=== PATIENT | male | born 1970 | race Caucasian/White ===

== ENCOUNTER 2018-06-23 08:36 | Day surgery (SDC) | payer MEDICARE, SELFPAY ==
[2018-06-22 13:08] VITALS: BP 124/87; PULSE 60; RESP 16; TEMP 36.9; O2SAT 97; BMI 32.1
[2018-06-23] VITALS (7 sets, daily range): BP systolic 104–132; BP diastolic 70–79; PULSE 59–79; RESP 16–18; TEMP 36.2–37.4; O2SAT 99–100; BMI 32.1
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
--- NOTE | 2018-06-23 09:45 | COLBX_PTH ---
PATIENT: CHRISTIANNE BERRY LOC: EN U#:[id number] AGE/SX: 48/M ROOM: RE06/23/[address]: Dr. Gia Huff MD : 1970 BED: DIS: 06/23/2018 SPEC #: [id number] RECD: 06/23/18 10:41 STATUS: MARA RELelia #: [id number] MEEK: 06/23/18 09:[address]: Gia Huff DEPT: SURGICAL PATHOLOGY RECD BY: Cliff Collins ENTERED: 06/23/18 11:24 SP TYPE: COLON BX OT DR: Dr. Little Faulkner DO Tissues: A - Transverse colon B - Descending colon C - Descending colon D - Rectum, NOS Procedures: Surgery Specimen Level IV HEADER OPERATION: Colonoscopy (MAC) PRE-OP DIAGNOSIS: Screening TISSUE SUBMITTED: A - Transverse colon biopsy, B - Proximal descending colon polyp biopsy, C - Distal descending colon polyp biopsy, D - Rectal polyps biopsy MICROSCOPIC DIAGNOSIS A. Polyp transverse colon, biopsy: Fragments of tubular adenoma. B. Proximal descending colon, biopsy: Fragments of colonic mucosa, no pathologic diagnosis. C. Polyp distal descending colon, biopsy: Tubular adenoma. D. Polyp rectum, biopsy: Fragments of hyperplastic polyp. VARUN:arlyn 06/24/18 MICROSCOPIC DESCRIPTION Slides are reviewed. GROSS DESCRIPTION A - Received in fixative is one container labeled with the patient's name and designated biopsy polyp transverse colon. The specimen consists of multiple irregular fragments of light huff soft tissue that in aggregate measure 0.6 x 0.2 x 0.1 cm. The specimen is totally submitted in one cassette. B - Received in fixative is one container labeled with the patient's name and designated biopsy polyp proximal descending colon. The specimen consists of two irregular fragments of light huff soft tissue that in aggregate measure 0.8 x 0.2 x 0.1 cm. The specimen is totally submitted in one cassette. C - Received in fixative is one container labeled with the patient's name and designated biopsy polyp distal descending colon. The specimen consists of one irregular fragment of light huff soft tissue that measures 0.3 x 0.3 x 0.1 cm. The specimen is totally submitted in one cassette. D - Received in fixative is one container labeled with the patient's name and designated biopsy polyp rectum. The specimen consists of multiple irregular fragments of light huff soft tissue that in aggregate measure 0.8 x 0.4 x 0.1 cm. The specimen is totally submitted in one cassette. / SJ:arlyn 06/23/18 TC:1 CPT: 02410 x4
--- NOTE | 2018-06-23 10:28 | OP.ENDO_ITS ---
Patient Name: Sameer Stapleton Procedure Date: 06/23/2018 9:23 AM Date of : 1970 Age: 48 Procedure: Colonoscopy Indications: Screening for colorectal malignant neoplasm Providers: Gia Huff MD Referring MD: Little Faulkner Medicines: Monitored Anesthesia Care Patient Profile: This is a 48 year old male. Last Colonoscopy: none. The patient's first colonoscopy is today. Complications: No immediate complications. Procedure: Pre-Anesthesia Assessment: - Prior to the procedure, a History and Physical was performed, and patient medications and allergies were reviewed. The patient's tolerance of previous anesthesia was also reviewed. The risks and benefits of the procedure and the sedation options and risks were discussed with the patient. All questions were answered, and informed consent was obtained. Prior Anticoagulants: The patient has taken no previous anticoagulant or antiplatelet agents. ASA Grade Assessment: II - A patient with mild systemic disease. After reviewing the risks and benefits, the patient was deemed in satisfactory condition to undergo the procedure. After I obtained informed consent, the scope was passed under direct vision. Throughout the procedure, the patient's blood pressure, pulse, and oxygen saturations were monitored continuously. The pediatric colonoscope was introduced through the anus and advanced to the ascending colon. The colonoscopy was technically difficult and complex due to a tortuous colon and Anterior abdominal loss of domain due to multiple previous surgery after 1996 with significant looping of the scope. The procedure was aided by changing the patient to a supine position and using manual pressure. The patient tolerated the procedure well. The quality of the bowel preparation was good. Scope In: 9:43:39 AM Scope Withdrawal Time 0 hours 14 minutes 34 seconds Scope Out: 10:18:36 AM Total Procedure Duration Time 0 hours 34 minutes 57 seconds Findings: The perianal and digital rectal examinations were normal. Five sessile polyps were found in the rectum, proximal descending colon, distal descending colon and transverse colon. The polyps were less than 5 mm in size. These polyps were removed with a cold biopsy forceps. Resection and retrieval were complete. The exam was otherwise without abnormality on direct and retroflexion views. Impression: - Five less than 5 mm polyps in the rectum, in the proximal descending colon, in the distal descending colon and in the transverse colon, removed with a cold biopsy forceps. Resected and retrieved. - The examination was otherwise normal on direct and retroflexion views. Recommendation: - Discharge patient to home. - Await pathology results. - Perform a single contrast barium enema in 1 week due to incomplete colonoscopy - Repeat colonoscopy is recommended based on pathology and BE results. The colonoscopy date will be determined after pathology results from today's exam become available for review. - Continue present medications. Procedure Code(s): --- Professional --- 41100, 52, Colonoscopy, flexible; with biopsy, single or multiple Diagnosis Code(s): --- Professional --- Z12.11, Encounter for screening for malignant neoplasm of colon K62.1, Rectal polyp D12.4, Benign neoplasm of descending colon D12.3, Benign neoplasm of transverse colon (hepatic flexure or splenic flexure) CPT copyright 2017 [employer]. All rights reserved. The codes documented in this report are preliminary and upon water technician review may be revised to meet current compliance requirements. MD Gia Cheung MD 06/23/2018 10:27:49 AM This report has been signed electronically. Number of Addenda: 0 Note Initiated On: 06/23/2018 9:23 AM
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
--- OUTSIDE RECORDS SUMMARY | 2018-08-09 04:13 | XMS RPT_ITS | Continuity of Care Document ---
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 Avg.Risk 6.2 5.0 3X Avg.Risk 8.0 6.1 LDL Cholesterol Calc 98 mg/dL (Normal) Range: 0-99 VLDL Cholesterol Lobo 40 mg/dL (Normal) Range: 5-40 HDL Cholesterol 40 mg/dL (Normal) Triglycerides 202 mg/dL (Abnormal) Range: 0-149 Cholesterol, Total 178 mg/dL (Normal) Range: 100-199 :10 Microalb/Creat Ratio, Randm Ur Comments: PATIENT WAS FASTINGPERFORMED BY: Mindmancer [employer] [facility] [id number] Microalb/Creat Ratio MALD {mg/g_creat} Range: 0.0-30.0 (Abnormal) Comments: This result is below the assay's limit of quantitation indicating adilute specimen, potentially due to diurnal variation. Considerrecollection at a time likely to provide a more concentrated urine. Microalbumin, Urine <3.0 ug/mL (Normal) Creatinine, Urine 122.2 mg/dL (Normal) 1-Xws-176841:10 Microscopic Examination Comments: PATIENT WAS FASTINGPERFORMED BY: Payoneer [employer] [facility] [id number] Bacteria None seen (Normal) Mucus Threads Present (Normal) Epithelial Cells (non None seen {/hpf} Range: 0 - 10 renal) (Normal) RBC None seen {/hpf} Range: 0 - 2 (Normal) WBC None seen {/hpf} Range: 0 - 5 (Normal) TSH 2.040 {uIU/mL} Comments: PATIENT WAS FASTINGPERFORMED BY: Payoneer Ljncxh9573 [facility] [id number] :10 (Normal) Range: 0.450-4.500 :10 Urinalysis, Complete Comments: PATIENT WAS FASTINGPERFORMED BY: Mindmancer Narrku0244 [facility] [id number] Microscopic Examination See below: (Normal) Comments: Microscopic was indicated and was performed. Microscopic Examination MICRON (Normal) Comments: Microscopic follows if indicated. Nitrite, Urine Negative (Normal) Urobilinogen,Semi-Qn 0.2 mg/dL (Normal) Range: 0.2-1.0 Bilirubin Negative (Normal) Occult Blood Negative (Normal) Ketones Negative (Normal) Glucose Negative (Normal) Protein Negative (Normal) WBC Esterase Negative (Normal) Appearance Clear (Normal) Urine-Color Yellow (Normal) pH 6.0 (Normal) Range: 5.0-7.5 Specific [place] 1.022 (Normal) Range: 1.005-1.030 :09 HgA1C , Office (89741) HgA1C , Office 5.6 % (Normal) Range: 4.6 - 7.1 :09 Blood Glucose , Office (51085) Blood Glucose , Office 91 (Normal) :58 Microscopic Examination Comments: PATIENT WAS FASTINGPERFORMED BY: DoPay63YouEarnedItUNC Health [facility] [id number] Bacteria Few (Normal) Mucus Threads Present (Normal) Epithelial Cells (non renal) None seen {/hpf} (Normal) Range: 0 - 10 RBC 0-2 {/hpf} (Normal) Range: 0 - 2 WBC 6-10 {/hpf} (Abnormal) Range: 0 - 5 :58 PSA (PROSTATE SPECIFIC Comments: PATIENT WAS FASTINGPERFORMED BY: SeeControl70 CucinialeUNC Health [facility] [id number] ANTIGEN) (V76.44) Prostate Specific Ag, 1.2 ng/mL (Normal) Range: 0.0-4.0 Serum Comments: TowiIA methodology. .According to the [place] [employer], Serum PSA shoulddecrease and remain at undetectable levels after radicalprostatectomy. The AUA defines biochemical recurrence as an initialPSA value 0.2 ng/mL or greater followed by a subsequent confirmatoryPSA value 0.2 ng/mL or greater.Values obtained with d ifferent assay methods or kits cannot be usedinterchangeably. Results cannot be interpreted as absolute evidenceof the presence or absence of malignant disease. :58 LIPID PANEL (12025) Comments: PATIENT WAS FASTINGPERFORMED BY: DoPay63YouEarnedItUNC Health [facility] [id number] LDL/HDL Ratio 2.5 {ratio_units} (Normal) Range: 0.0-3.6 Comments: LDL/HDL Ratio Men Women 1/2 Avg.Risk 1.0 1.5 Av g.Risk 3.6 3.2 2X Avg.Risk 6.2 5.0 3X Avg.Risk 8.0 6.1 LDL Cholesterol Calc 112 mg/dL (Abnormal) Range: 0-99 VLDL Cholesterol Lobo 29 mg/dL (Normal) Range: 5-40 HDL Cholesterol 44 mg/dL (Normal) Triglycerides 147 mg/dL (Normal) Range: 0-149 Cholesterol, Total 185 mg/dL (Normal) Range: 100-199 :58 TSH (83086) Comments: PATIENT WAS FASTINGPERFORMED BY: NetzoptikerUNC Health [facility] [id number] TSH 2.080 {uIU/mL} (Normal) Range: 0.450-4.500 :58 URINALYSIS, W/ MICRO (76012) Comments: PATIENT WAS FASTINGPERFORMED BY: NetzoptikerUNC Health [facility] [id number] Microscopic Examination See below: (Normal) Comments: Microscopic was indicated and was performed. Nitrite, Urine Negative (Normal) Urobilinogen,Semi-Qn 0.2 mg/dL (Normal) Range: 0.2-1.0 Bilirubin Negative (Normal) Occult Blood Negative (Normal) Ketones Negative (Normal) Glucose Negative (Normal) Protein Negative (Normal) WBC Esterase 2+ (Abnormal) Appearance Clear (Normal) Urine-Color Yellow (Normal) pH 5.5 (Normal) Range: 5.0-7.5 Specific [place] 1.021 (Normal) Range: 1.005-1.030 :58 MICROALBUMIN: CREATININE RATIO Comments: PATIENT WAS FASTINGPERFORMED BY: NetzoptikerUNC Health Blue [facility] [id number] (85054) AND (16678) Microalb/Creat Ratio 5.0 {mg/g_creat} (Normal) Range: 0.0-30.0 Microalbumin, Urine 6.4 ug/mL (Normal) Creatinine, Urine 128.2 mg/dL (Normal) :58 METABOLIC PANEL, COMPREHENSIVE Comments: PATIENT WAS FASTINGPERFORMED BY: Payoneer Jrqzvt0668 [facility] [id number] (06602) ALT (SGPT) 23 [iU]/L (Normal) Range: 0-44 AST (SGOT) 13 [iU]/L (Normal) Range: 0-40 Alkaline Phosphatase, S 56 [iU]/L (Normal) Range: 39-117 Bilirubin, Total 0.5 mg/dL (Normal) Range: 0.0-1.2 A/G Ratio 2.3 (Abnormal) Range: 1.2-2.2 Comments: Please note reference interval change Globulin, Total 1.9 g/dL (Normal) Range: 1.5-4.5 Albumin, Serum 4.4 g/dL (Normal) Range: 3.5-5.5 Protein, Total, Serum 6.3 g/dL (Normal) Range: 6.0-8.5 Calcium, Serum 9.2 mg/dL (Normal) Range: 8.7-10.2 Carbon Dioxide, Total 20 mmol/L (Normal) Range: 18-29 Chloride, Serum 104 mmol/L (Normal) Range: 96-106 Potassium, Serum 4.1 mmol/L (Normal) Range: 3.5-5.2 Sodium, Serum 142 mmol/L (Normal) Range: 134-144 BUN/Creatinine Ratio 14 (Normal) Range: 9-20 Comments: Please note reference interval change eGFR If Africn Am 102 mL/min/1.73 (Normal) eGFR If NonAfricn Am 89 mL/min/1.73 (Normal) Creatinine, Serum 1.00 mg/dL (Normal) Range: 0.76-1.27 BUN 14 mg/dL (Normal) Range: 6-24 Glucose, Serum 84 mg/dL (Normal) Range: 65-99 9-Wwy-047845:58 CBC W/AUTO DIFF WBC Comments: PATIENT WAS FASTINGPERFORMED BY: PayoneerCentraState Healthcare SystemEqteau1409 [facility] [id number] Information: [id number] (35611) Immature Grans (Abs) 0.0 {x10E3/uL} (Normal) Range: 0.0-0.1 Immature Granulocytes 0 % (Normal) Baso (Absolute) 0.0 {x10E3/uL} (Normal) Range: 0.0-0.2 Eos (Absolute) 0.1 {x10E3/uL} (Normal) Range: 0.0-0.4 Monocytes(Absolute) 0.7 {x10E3/uL} (Normal) Range: 0.1-0.9 Lymphs (Absolute) 1.9 {x10E3/uL} (Normal) Range: 0.7-3.1 Neutrophils (Absolute) 4.1 {x10E3/uL} (Normal) Range: 1.4-7.0 Basos 0 % (Normal) Eos 1 % (Normal) Monocytes 10 % (Normal) Lymphs 29 % (Normal) Neutrophils 60 % (Normal) Platelets 196 {x10E3/uL} (Normal) Range: 150-379 RDW 14.0 % (Normal) Range: 12.3-15.4 MCHC 34.5 g/dL (Normal) Range: 31.5-35.7 MCH 32.7 pg (Normal) Range: 26.6-33.0 MCV 95 fL (Normal) Range: 79-97 Hematocrit 44.4 % (Normal) Range: 37.5-51.0 Hemoglobin 15.3 g/dL (Normal) Range: 12.6-17.7 RBC 4.68 {x10E6/uL} (Normal) Range: 4.14-5.80 WBC 6.8 {x10E3/uL} (Normal) Range: 3.4-10.8 :04 HgA1C , Office (04835) HgA1C , Office 5.7 % (Normal) Range: 4.6 - 7.1 32-Mru-458824:04 Blood Glucose , Office (81279) Blood Glucose , Office 74 (Normal) 56-Dkr-271038:18 TSH (62031) Comments: PATIENT WAS FASTINGPERFORMED BY: LabCoCentraState Healthcare SystemUbecck9598 [facility] [id number] TSH 1.590 {uIU/mL} (Normal) Range: 0.450-4.500 22-Yph-208097:18 Lipid Panel (97206) Comments: PATIENT WAS FASTINGPERFORMED BY: LabCoCentraState Healthcare SystemVjbbtm5313 [facility] [id number] LDL/HDL Ratio 2.6 {ratio_units} (Normal) Range: 0.0-3.6 Comments: LDL/HDL Ratio Men Women 1/2 Avg.Risk 1.0 1.5 Av g.Risk 3.6 3.2 2X Avg.Risk 6.2 5.0 3X Avg.Risk 8.0 6.1 LDL Cholesterol Calc 92 mg/dL (Normal) Range: 0-99 VLDL Cholesterol Lobo 39 mg/dL (Normal) Range: 5-40 HDL Cholesterol 36 mg/dL (Abnormal) Comments: According to ATP-III Guidelines, HDL-C >59 mg/dL is considered anegative risk factor for CHD. Triglycerides 194 mg/dL (Abnormal) Range: 0-149 Cholesterol, Total 167 mg/dL (Normal) Range: 100-199 68-Rbx-866368:18 CBC WITH MANUAL DIFF (15870) Comments: PATIENT WAS FASTINGPERFORMED BY: LabCoCentraState Healthcare SystemDvrxbx0817 [facility] [id number] Immature Grans (Abs) 0.0 {x10E3/uL} (Normal) Range: 0.0-0.1 Immature Granulocytes 0 % (Normal) Baso (Absolute) 0.0 {x10E3/uL} (Normal) Range: 0.0-0.2 Eos (Absolute) 0.1 {x10E3/uL} (Normal) Range: 0.0-0.4 Monocytes(Absolute) 0.6 {x10E3/uL} (Normal) Range: 0.1-0.9 Lymphs (Absolute) 1.6 {x10E3/uL} (Normal) Range: 0.7-3.1 Neutrophils (Absolute) 4.0 {x10E3/uL} (Normal) Range: 1.4-7.0 Basos 0 % (Normal) Eos 1 % (Normal) Monocytes 9 % (Normal) Lymphs 25 % (Normal) Neutrophils 65 % (Normal) Platelets 173 {x10E3/uL} (Normal) Range: 150-379 RDW 13.9 % (Normal) Range: 12.3-15.4 MCHC 33.3 g/dL (Normal) Range: 31.5-35.7 MCH 32.3 pg (Normal) Range: 26.6-33.0 MCV 97 fL (Normal) Range: 79-97 Hematocrit 45.4 % (Normal) Range: 37.5-51.0 Hemoglobin 15.1 g/dL (Normal) Range: 12.6-17.7 RBC 4.67 {x10E6/uL} (Normal) Range: 4.14-5.80 WBC 6.2 {x10E3/uL} (Normal) Range: 3.4-10.8 93-Bzh-141423:18 Metabolic Panel, Comprehensive Comments: PATIENT WAS FASTINGPERFORMED BY: LabCoCentraState Healthcare SystemPkpekg4909 [facility] [id number] (96300) ALT (SGPT) 18 [iU]/L (Normal) Range: 0-44 AST (SGOT) 10 [iU]/L (Normal) Range: 0-40 Alkaline Phosphatase, S 62 [iU]/L (Normal) Range: 39-117 Bilirubin, Total 0.5 mg/dL (Normal) Range: 0.0-1.2 A/G Ratio 2.1 (Normal) Range: 1.1-2.5 Globulin, Total 2.1 g/dL (Normal) Range: 1.5-4.5 Albumin, Serum 4.4 g/dL (Normal) Range: 3.5-5.5 Protein, Total, Serum 6.5 g/dL (Normal) Range: 6.0-8.5 Calcium, Serum 9.1 mg/dL (Normal) Range: 8.7-10.2 Carbon Dioxide, Total 22 mmol/L (Normal) Range: 18-29 Chloride, Serum 101 mmol/L (Normal) Range: 97-106 Comments: Please note reference interval change Potassium, Serum 4.7 mmol/L (Normal) Range: 3.5-5.2 Comments: Please note reference interval change Sodium, Serum 142 mmol/L (Normal) Range: 136-144 Comments: Please note reference interval change BUN/Creatinine Ratio 14 (Normal) Range: 9-20 eGFR If Africn Am 95 mL/min/1.73 (Normal) eGFR If NonAfricn Am 83 mL/min/1.73 (Normal) Creatinine, Serum 1.06 mg/dL (Normal) Range: 0.76-1.27 BUN 15 mg/dL (Normal) Range: 6-24 Glucose, Serum 89 mg/dL (Normal) Range: 65-99 77-Mwa-176474:55 HgA1C , Office (90176) HgA1C , Office 6.1 % (Normal) Range: 4.6 - 7.1 :35 METABOLIC PANEL, Comments: PATIENT WAS FASTINGPERFORMED BY: Intelipost70 [facility] [id number] Information: [id number] COMPREHENSIVE (36549) ALT (SGPT) 17 [iU]/L (Normal) Range: 0-44 AST (SGOT) 11 [iU]/L (Normal) Range: 0-40 Alkaline Phosphatase, S 68 [iU]/L (Normal) Range: 39-117 Bilirubin, Total 0.5 mg/dL (Normal) Range: 0.0-1.2 A/G Ratio 2.0 (Normal) Range: 1.1-2.5 Globulin, Total 2.2 g/dL (Normal) Range: 1.5-4.5 Albumin, Serum 4.4 g/dL (Normal) Range: 3.5-5.5 Protein, Total, Serum 6.6 g/dL (Normal) Range: 6.0-8.5 Calcium, Serum 9.5 mg/dL (Normal) Range: 8.7-10.2 Carbon Dioxide, Total 24 mmol/L (Normal) Range: 18-29 Chloride, Serum 100 mmol/L (Normal) Range: 97-108 Potassium, Serum 4.8 mmol/L (Normal) Range: 3.5-5.2 Sodium, Serum 140 mmol/L (Normal) Range: 134-144 BUN/Creatinine Ratio 14 (Normal) Range: 9-20 eGFR If Africn Am 91 mL/min/1.73 (Normal) eGFR If NonAfricn Am 79 mL/min/1.73 (Normal) Creatinine, Serum 1.11 mg/dL (Normal) Range: 0.76-1.27 BUN 16 mg/dL (Normal) Range: 6-24 Glucose, Serum 89 mg/dL (Normal) Range: 65-99 :35 LIPID PANEL (01125) Comments: PATIENT WAS FASTINGPERFORMED BY: Sun[employer] Biopharmalin6370 [facility] [id number]; will review on 4.26 LDL/HDL Ratio 2.3 {ratio_units} (Normal) Range: 0.0-3.6 Comments: LDL/HDL Ratio Men Women 1/2 Avg.Risk 1.0 1.5 Av g.Risk 3.6 3.2 2X Avg.Risk 6.2 5.0 3X Avg.Risk 8.0 6.1 LDL Cholesterol Calc 89 mg/dL (Normal) Range: 0-99 VLDL Cholesterol Lobo 20 mg/dL (Normal) Range: 5-40 HDL Cholesterol 39 mg/dL (Abnormal) Comments: According to ATP-III Guidelines, HDL-C >59 mg/dL is considered anegative risk factor for CHD. Triglycerides 101 mg/dL (Normal) Range: 0-149 Cholesterol, Total 148 mg/dL (Normal) Range: 100-199 60-Xbr-528950:35 PSA (PROSTATE SPECIFIC Comments: PATIENT WAS FASTINGPERFORMED BY: SeeControl70 BTR [facility] HospitalCardioMEMSUNC Health [facility] [id number] ANTIGEN) (V76.44) Prostate Specific Ag, 1.3 ng/mL (Normal) Range: 0.0-4.0 Serum Comments: [place] ECLIA methodology. .According to the [place] [employer], Serum PSA shoulddecrease and remain at undetectable levels after radicalprostatectomy. The AUA defines biochemical recurrence as an initialPSA value 0.2 ng/mL or greater followed by a subsequent confirmatoryPSA value 0.2 ng/mL or greater.Values obtained with d ifferent assay methods or kits cannot be usedinterchangeably. Results cannot be interpreted as absolute evidenceof the presence or absence of malignant disease. 00-Ypu-940362:11 HgA1C , Office (11075) HgA1C , Office 6.8 % (Normal) Range: 4.6 - 7.1 2-Zbt-723955:22 METABOLIC PANEL, COMPREHENSIVE Comments: PATIENT WAS FASTINGPERFORMED BY: SeeControl70 BTR [facility] [id number] (77662) ALT (SGPT) 20 [iU]/L (Normal) Range: 0-44 AST (SGOT) 13 [iU]/L (Normal) Range: 0-40 Alkaline Phosphatase, S 52 [iU]/L (Normal) Range: 39-117 Bilirubin, Total 0.5 mg/dL (Normal) Range: 0.0-1.2 A/G Ratio 2.3 (Normal) Range: 1.1-2.5 Globulin, Total 2.0 g/dL (Normal) Range: 1.5-4.5 Albumin, Serum 4.5 g/dL (Normal) Range: 3.5-5.5 Protein, Total, Serum 6.5 g/dL (Normal) Range: 6.0-8.5 Calcium, Serum 9.0 mg/dL (Normal) Range: 8.7-10.2 Carbon Dioxide, Total 23 mmol/L (Normal) Range: 18-29 Chloride, Serum 100 mmol/L (Normal) Range: 97-108 Potassium, Serum 4.4 mmol/L (Normal) Range: 3.5-5.2 Sodium, Serum 139 mmol/L (Normal) Range: 134-144 BUN/Creatinine Ratio 12 (Normal) Range: 9-20 eGFR If Africn Am 95 mL/min/1.73 (Normal) eGFR If NonAfricn Am 82 mL/min/1.73 (Normal) Creatinine, Serum 1.07 mg/dL (Normal) Range: 0.76-1.27 BUN 13 mg/dL (Normal) Range: 6-24 Glucose, Serum 88 mg/dL (Normal) Range: 65-99 9-Snk-378019:22 LIPID PANEL (86110) Comments: PATIENT WAS FASTINGPERFORMED BY: LabCoCentraState Healthcare SystemIujman9935 [facility] [id number] LDL/HDL Ratio 2.3 {ratio_units} (Normal) Range: 0.0-3.6 Comments: LDL/HDL Ratio Men Women 1/2 Avg.Risk 1.0 1.5 Av g.Risk 3.6 3.2 2X Avg.Risk 6.2 5.0 3X Avg.Risk 8.0 6.1 LDL Cholesterol Calc 100 mg/dL (Abnormal) Range: 0-99 VLDL Cholesterol Lobo 23 mg/dL (Normal) Range: 5-40 HDL Cholesterol 44 mg/dL (Normal) Comments: According to ATP-III Guidelines, HDL-C >59 mg/dL is considered anegative risk factor for CHD. Triglycerides 117 mg/dL (Normal) Range: 0-149 Cholesterol, Total 167 mg/dL (Normal) Range: 100-199 :22 CBC with auto diff Comments: PATIENT WAS FASTINGPERFORMED BY: AMADO [facility] Cgxhxf4866 Mariann GeorgeNov[facility] [id number] Information: [id number]; apt. [birth year] (70862) Immature Grans (Abs) 0.0 {x10E3/uL} (Normal) Range: 0.0-0.1 Immature Granulocytes 0 % (Normal) Baso (Absolute) 0.0 {x10E3/uL} (Normal) Range: 0.0-0.2 Eos (Absolute) 0.1 {x10E3/uL} (Normal) Range: 0.0-0.4 Monocytes(Absolute) 0.6 {x10E3/uL} (Normal) Range: 0.1-0.9 Lymphs (Absolute) 1.9 {x10E3/uL} (Normal) Range: 0.7-3.1 Neutrophils (Absolute) 3.8 {x10E3/uL} (Normal) Range: 1.4-7.0 Basos 0 % (Normal) Eos 1 % (Normal) Monocytes 9 % (Normal) Lymphs 30 % (Normal) Neutrophils 60 % (Normal) Platelets 195 {x10E3/uL} (Normal) Range: 150-379 RDW 13.9 % (Normal) Range: 12.3-15.4 MCHC 34.6 g/dL (Normal) Range: 31.5-35.7 MCH 33.2 pg (Abnormal) Range: 26.6-33.0 MCV 96 fL (Normal) Range: 79-97 Hematocrit 46.2 % (Normal) Range: 37.5-51.0 Hemoglobin 16.0 g/dL (Normal) Range: 12.6-17.7 RBC 4.82 {x10E6/uL} (Normal) Range: 4.14-5.80 WBC 6.4 {x10E3/uL} (Normal) Range: 3.4-10.8 :29 HgA1C , Office (53042) HgA1C , Office 5.8 % (Normal) Range: 4.6 - 7.1 :05 PSA (PROSTATE SPECIFIC Comments: PATIENT WAS FASTINGPERFORMED BY: LabCoCentraState Healthcare SystemNztefk8419 [facility] [id number] ANTIGEN) (V76.44) Prostate Specific Ag, 1.2 ng/mL (Normal) Range: 0.0-4.0 Serum Comments: [place] ECLIA methodology. .According to the [place] [employer], Serum PSA shoulddecrease and remain at undetectable levels after radicalprostatectomy. The AUA defines biochemical recurrence as an initialPSA value 0.2 ng/mL or greater followed by a subsequent confirmatoryPSA value 0.2 ng/mL or greater.Values obtained with d ifferent assay methods or kits cannot be usedinterchangeably. Results cannot be interpreted as absolute evidenceof the presence or absence of malignant disease. 56-Qtn-832953:05 METABOLIC PANEL, Comments: PATIENT WAS FASTINGPERFORMED BY: MindmancerLea Regional Medical CenterPtdaay6385 [facility] [id number] Information: [id number] COMPREHENSIVE (18708) ALT (SGPT) 22 [iU]/L (Normal) Range: 0-44 AST (SGOT) 15 [iU]/L (Normal) Range: 0-40 Alkaline Phosphatase, S 60 [iU]/L (Normal) Range: 39-117 Bilirubin, Total 0.6 mg/dL (Normal) Range: 0.0-1.2 A/G Ratio 2.2 (Normal) Range: 1.1-2.5 Globulin, Total 2.1 g/dL (Normal) Range: 1.5-4.5 Albumin, Serum 4.6 g/dL (Normal) Range: 3.5-5.5 Protein, Total, Serum 6.7 g/dL (Normal) Range: 6.0-8.5 Calcium, Serum 9.4 mg/dL (Normal) Range: 8.7-10.2 Carbon Dioxide, Total 22 mmol/L (Normal) Range: 18-29 Chloride, Serum 100 mmol/L (Normal) Range: 97-108 Potassium, Serum 4.5 mmol/L (Normal) Range: 3.5-5.2 Sodium, Serum 139 mmol/L (Normal) Range: 134-144 BUN/Creatinine Ratio 14 (Normal) Range: 9-20 eGFR If Africn Am 103 mL/min/1.73 (Normal) eGFR If NonAfricn Am 89 mL/min/1.73 (Normal) Creatinine, Serum 1.01 mg/dL (Normal) Range: 0.76-1.27 BUN 14 mg/dL (Normal) Range: 6-24 Glucose, Serum 86 mg/dL (Normal) Range: 65-99 37-Gia-694627:05 LIPID PANEL (55488) Comments: PATIENT WAS FASTINGPERFORMED BY: PayoneerCentraState Healthcare SystemNmxrlb6704 [facility] [id number] LDL/HDL Ratio 2.4 {ratio_units} (Normal) Range: 0.0-3.6 Comments: LDL/HDL Ratio Men Women 1/2 Avg.Risk 1.0 1.5 Av g.Risk 3.6 3.2 2X Avg.Risk 6.2 5.0 3X Avg.Risk 8.0 6.1 LDL Cholesterol Calc 99 mg/dL (Normal) Range: 0-99 VLDL Cholesterol Lobo 13 mg/dL (Normal) Range: 5-40 HDL Cholesterol 42 mg/dL (Normal) Comments: According to ATP-III Guidelines, HDL-C >59 mg/dL is considered anegative risk factor for CHD. Triglycerides 63 mg/dL (Normal) Range: 0-149 Cholesterol, Total 154 mg/dL (Normal) Range: 100-199 32-Eld-551715:45 HgA1C , Office (87815) HgA1C , Office 6.0 % (Normal) Range: 4.6 - 7.1 92-Lrr-230470:45 Blood Glucose , Office (94174) Blood Glucose , Office 105 (Normal) 62-Mzy-621215:08 METABOLIC PANEL, Comments: PATIENT WAS FASTINGPERFORMED BY: LabCoCentraState Healthcare SystemNtmqzm3338 [facility] [id number] Information: [id number] COMPREHENSIVE (99868) ALT (SGPT) 23 [iU]/L (Normal) Range: 0-44 AST (SGOT) 15 [iU]/L (Normal) Range: 0-40 Alkaline Phosphatase, S 60 [iU]/L (Normal) Range: 39-117 Bilirubin, Total 0.7 mg/dL (Normal) Range: 0.0-1.2 A/G Ratio 2.1 (Normal) Range: 1.1-2.5 Globulin, Total 2.1 g/dL (Normal) Range: 1.5-4.5 Albumin, Serum 4.4 g/dL (Normal) Range: 3.5-5.5 Protein, Total, Serum 6.5 g/dL (Normal) Range: 6.0-8.5 Calcium, Serum 9.6 mg/dL (Normal) Range: 8.7-10.2 Carbon Dioxide, Total 25 mmol/L (Normal) Range: 18-29 Chloride, Serum 99 mmol/L (Normal) Range: 97-108 Potassium, Serum 4.6 mmol/L (Normal) Range: 3.5-5.2 Sodium, Serum 140 mmol/L (Normal) Range: 134-144 BUN/Creatinine Ratio 11 (Normal) Range: 9-20 eGFR If Africn Am 89 mL/min/1.73 (Normal) eGFR If NonAfricn Am 77 mL/min/1.73 (Normal) Creatinine, Serum 1.14 mg/dL (Normal) Range: 0.76-1.27 BUN 13 mg/dL (Normal) Range: 6-24 Glucose, Serum 90 mg/dL (Normal) Range: 65-99 12-Yfi-059907:08 LIPID PANEL (62359) Comments: PATIENT WAS FASTINGPERFORMED BY: LabCoCentraState Healthcare SystemBcbfbo7790 [facility] [id number] LDL/HDL Ratio 2.4 {ratio_units} (Normal) Range: 0.0-3.6 Comments: LDL/HDL Ratio Men Women 1/2 Avg.Risk 1.0 1.5 Av g.Risk 3.6 3.2 2X Avg.Risk 6.2 5.0 3X Avg.Risk 8.0 6.1 LDL Cholesterol Calc 97 mg/dL (Normal) Range: 0-99 VLDL Cholesterol Lobo 24 mg/dL (Normal) Range: 5-40 HDL Cholesterol 40 mg/dL (Normal) Comments: According to ATP-III Guidelines, HDL-C >59 mg/dL is considered anegative risk factor for CHD. Triglycerides 118 mg/dL (Normal) Range: 0-149 Cholesterol, Total 161 mg/dL (Normal) Range: 100-199 46-Bqx-484835:33 Blood Glucose , Office (73192) Blood Glucose , Office 84 (Normal) 87-Ded-157742:33 HgA1C , Office (91742) HgA1C , Office 6.1 % (Normal) Range: 4.6 - 7.1 :40 FSH AND LH (20889) Comments: PATIENT WAS FASTINGPERFORMED BY: LabCoCentraState Healthcare SystemPovudf6071 [facility] [id number] BY: [address] [id number] FSH 8.2 m[iU]/mL (Normal) Range: 1.5-12.4 LH 7.8 m[iU]/mL (Normal) Range: 1.7-8.6 :40 TESTOSTERONE FREE (57390) Comments: PATIENT WAS FASTINGPERFORMED BY: LabCoCentraState Healthcare SystemZmxgjo6013 [facility] [id number] BY: [address] [id number] Free Testosterone(Direct) 8.6 pg/mL (Normal) Range: 6.8-21.5 :40 PROLACTIN (42813) Comments: PATIENT WAS FASTINGPERFORMED BY: LabPound Rockout WorkoutCentraState Healthcare [id number] [facility] [id number] BY: [address] [id number] Prolactin 6.2 ng/mL (Normal) Range: 4.0-15.2 :40 TSH (45868) Comments: PATIENT WAS FASTINGPERFORMED BY: [facility]Co[facility] SystemXpmazr0866 [facility] [id number] BY: [address] [id number] TSH 1.900 {uIU/mL} (Normal) Range: 0.450-4.500 :40 LIPID PANEL (94225) Comments: PATIENT WAS FASTINGPERFORMED BY: [facility]Co[facility] SystemNhlqcj3122 [facility] [id number] BY: [address] [id number] Inf ormation: [id number] LDL/HDL Ratio 3.1 {ratio_units} (Normal) Range: 0.0-3.6 LDL Cholesterol Calc 115 mg/dL (Abnormal) Range: 0-99 VLDL Cholesterol Lobo 28 mg/dL (Normal) Range: 5-40 HDL Cholesterol 37 mg/dL (Abnormal) Comments: According to ATP-III Guidelines, HDL-C >59 mg/dL is considered anegative risk factor for CHD. Triglycerides 139 mg/dL (Normal) Range: 0-149 Cholesterol, Total 180 mg/dL (Normal) Range: 100-199 [id number]:40 PSA TOTAL +%FREE [id number] Comments: diagnostic, in six months (approximately); PATIENT WAS FASTINGPERFORMED BY: CB [facility] [id number] [facility] [id number] BY: BN [facility] Ygcsltxeqb6316 [facility] [id number] ([id number]) % Free PSA 25.8 % (Normal) Comments: The table below lists the probability of prostate cancer formen with non-suspicious DESTINI results and total PSA between4 and 10 ng/mL, by patient age (Radha et al, EDDA 1998,279:1542). % Free PSA 50-64 yr 65-75 yr 0.00-10.00% 56% 55% 10.01-15.00% 24% 35% 15.01-20.00% 17% 23% 20.01-25.00% 10% 20% >25.00% 5% 9%Please note: Radha et al did not make specific recommendations regarding the use of percent free PSA for any other population of men. PSA, Free 0.31 ng/mL (Normal) Comments: TowiIA methodology. Prostate Specific Ag, Serum 1.2 ng/mL (Normal) Range: 0.0-4.0 Comments: [place] ECLIA methodology. .According to the [facility] [facility] Association, Serum PSA shoulddecrease and remain at undetectable levels after radicalprostatectomy. The AUA defines biochemical recurrence as an initialPSA value 0.2 ng/mL or greater followed by a subsequent confirmatoryPSA value 0.2 ng/mL or greater.Values obtained with d ifferent assay methods or kits cannot be usedinterchangeably. Results cannot be interpreted as absolute evidenceof the presence or absence of malignant disease. :47 HgA1C , Office (38804) HgA1C , Office 5.6 % (Normal) Range: 4.6 - 7.1 :47 Blood Glucose , Office (76510) Blood Glucose , Office 71 (Normal) :28 METABOLIC PANEL, COMPREHENSIVE Comments: PATIENT WAS FASTINGPERFORMED BY: [facility]UNC [facility] [id number] ([id number]) ALT (SGPT) 23 [iU]/L (Normal) Range: 0-44 AST (SGOT) 14 [iU]/L (Normal) Range: 0-40 Alkaline Phosphatase, S 60 [iU]/L (Normal) Range: 44-102 Bilirubin, Total 0.4 mg/dL (Normal) Range: 0.0-1.2 A/G Ratio 1.7 (Normal) Range: 1.1-2.5 Globulin, Total 2.6 g/dL (Normal) Range: 1.5-4.5 Albumin, Serum 4.4 g/dL (Normal) Range: 3.5-5.5 Protein, Total, Serum 7.0 g/dL (Normal) Range: 6.0-8.5 Calcium, Serum 9.5 mg/dL (Normal) Range: 8.7-10.2 Carbon Dioxide, Total 22 mmol/L (Normal) Range: 19-28 Chloride, Serum 104 mmol/L (Normal) Range: 97-108 Potassium, Serum 4.6 mmol/L (Normal) Range: 3.5-5.2 Sodium, Serum 143 mmol/L (Normal) Range: 134-144 BUN/Creatinine Ratio 9 (Normal) Range: 9-20 eGFR If Africn Am 110 mL/min/1.73 (Normal) eGFR If NonAfricn Am 95 mL/min/1.73 (Normal) Creatinine, Serum 0.96 mg/dL (Normal) Range: 0.76-1.27 BUN 9 mg/dL (Normal) Range: 6-24 Glucose, Serum 89 mg/dL (Normal) Range: 65-99 :28 CBC WITH MANUAL DIFF Comments: PATIENT WAS FASTINGPERFORMED BY: [employer] [place] [id number] Information: [id number] ([id number]) Immature Grans (Abs) 0.0 {x10E3/uL} (Normal) Range: 0.0-0.1 Immature Granulocytes 0 % (Normal) Range: 0-2 Baso (Absolute) 0.0 {x10E3/uL} (Normal) Range: 0.0-0.2 Eos (Absolute) 0.1 {x10E3/uL} (Normal) Range: 0.0-0.4 Monocytes(Absolute) 0.6 {x10E3/uL} (Normal) Range: 0.1-0.9 Lymphs (Absolute) 2.3 {x10E3/uL} (Normal) Range: 0.7-3.1 Neutrophils (Absolute) 5.3 {x10E3/uL} (Normal) Range: 1.4-7.0 Basos 0 % (Normal) Range: 0-3 Eos 1 % (Normal) Range: 0-5 Monocytes 8 % (Normal) Range: 4-12 Lymphs 28 % (Normal) Range: 14-46 Neutrophils 63 % (Normal) Range: 40-74 Platelets 217 {x10E3/uL} (Normal) Range: 155-379 RDW 13.7 % (Normal) Range: 12.3-15.4 MCHC 33.6 g/dL (Normal) Range: 31.5-35.7 MCH 33.0 pg (Normal) Range: 26.6-33.0 MCV 98 fL (Abnormal) Range: 79-97 Hematocrit 46.4 % (Normal) Range: 37.5-51.0 Hemoglobin 15.6 g/dL (Normal) Range: 12.6-17.7 RBC 4.73 {x10E6/uL} (Normal) Range: 4.14-5.80 WBC 8.3 {x10E3/uL} (Normal) Range: 3.4-10.8 1-Vcr-542653:28 PSA (PROSTATE SPECIFIC Comments: PATIENT WAS FASTINGPERFORMED BY: [facility] [id number] [facility] [id number] ANTIGEN) (V76.44) Prostate Specific Ag, 3.9 ng/mL (Normal) Range: 0.0-4.0 Serum Comments: [place] ECLIA methodology. .According to the [place] [employer], Serum PSA shoulddecrease and remain at undetectable levels after radicalprostatectomy. The AUA defines biochemical recurrence as an initialPSA value 0.2 ng/mL or greater followed by a subsequent confirmatoryPSA value 0.2 ng/mL or greater.Values obtained with d ifferent assay methods or kits cannot be usedinterchangeably. Results cannot be interpreted as absolute evidenceof the presence or absence of malignant disease. :28 Lipid Panel (76139) Comments: PATIENT WAS FASTINGPERFORMED BY: SeeControl70 [facility] [id number] LDL/HDL Ratio 2.7 {ratio_units} (Normal) Range: 0.0-3.6 LDL Cholesterol Calc 101 mg/dL (Abnormal) Range: 0-99 VLDL Cholesterol Lobo 37 mg/dL (Normal) Range: 5-40 HDL Cholesterol 38 mg/dL (Abnormal) Comments: According to ATP-III Guidelines, HDL-C >59 mg/dL is considered anegative risk factor for CHD. Triglycerides 185 mg/dL (Abnormal) Range: 0-149 Cholesterol, Total 176 mg/dL (Normal) Range: 100-199 :54 HgA1C , Office (38671) HgA1C , Office 6.0 % (Normal) Range: 4.6 - 7.1 50-Ihs-003759:54 Blood Glucose , Office (58190) Blood Glucose , Office 84 (Normal) 94-Wfl-702084:07 HgA1C , Office (95095) Comments: 5.9 HgA1C , Office 5.9 % (Normal) Range: 4.6 - 7.1 15-Dmc-133240:42 Blood Glucose , Office (81992) Blood Glucose , Office 108 (Normal) 1-Gdq-907661:04 Lipid Panel (73554) Comments: PATIENT WAS FASTINGPERFORMED BY: [facility]erCentraState [facility] SystemKphnzr0182 [facility] [id number] Information: [id number] LDL/HDL Ratio 2.5 {ratio_units} (Normal) Range: 0.0-3.6 LDL Cholesterol Calc 97 mg/dL (Normal) Range: 0-99 VLDL Cholesterol Lobo 32 mg/dL (Normal) Range: 5-40 HDL Cholesterol 39 mg/dL (Abnormal) Comments: According to ATP-III Guidelines, HDL-C >59 mg/dL is considered anegative risk factor for CHD. Triglycerides 158 mg/dL (Abnormal) Range: 0-149 Cholesterol, Total 168 mg/dL (Normal) Range: 100-199 77-Rls-088750:40 PSA (PROSTATE SPECIFIC Comments: PATIENT WAS FASTINGPERFORMED BY: [facility]er [id number] [facility] [id number] ANTIGEN) (V76.44) Prostate Specific Ag, 1.2 ng/mL (Normal) Range: 0.0-4.0 Serum Comments: TowiIA methodology. .According to the [place] [employer], Serum PSA shoulddecrease and remain at undetectable levels after radicalprostatectomy. The AUA defines biochemical recurrence as an initialPSA value 0.2 ng/mL or greater followed by a subsequent confirmatoryPSA value 0.2 ng/mL or greater.Values obtained with d ifferent assay methods or kits cannot be usedinterchangeably. Results cannot be interpreted as absolute evidenceof the presence or absence of malignant disease. 37-Uht-244831:40 LIPID PANEL (85952) Comments: PATIENT WAS FASTINGPERFORMED BY: [facility]erCent[facility] SystemNgajhp0967 [facility] [id number] Information: [id number] LDL/HDL Ratio 3.5 {ratio_units} (Normal) Range: 0.0-3.6 LDL Cholesterol Calc 110 mg/dL (Abnormal) Range: 0-99 VLDL Cholesterol Lobo 43 mg/dL (Abnormal) Range: 5-40 HDL Cholesterol 31 mg/dL (Abnormal) Comments: According to ATP-III Guidelines, HDL-C >59 mg/dL is considered anegative risk factor for CHD. Triglycerides 213 mg/dL (Abnormal) Range: 0-149 Cholesterol, Total 184 mg/dL (Normal) Range: 100-199 4-Jxc-562097:53 Lipid Panel (02340) Comments: PATIENT WAS FASTINGPERFORMED BY: [facility]erCent[facility]State [facility] [id number] [facility] [id number] Information: [id number] LDL/HDL Ratio 3.3 {ratio_units} (Normal) Range: 0.0-3.6 LDL Cholesterol Calc 111 mg/dL (Abnormal) Range: 0-99 VLDL Cholesterol Lobo 30 mg/dL (Normal) Range: 5-40 HDL Cholesterol 34 mg/dL (Abnormal) Comments: According to ATP-III Guidelines, HDL-C >59 mg/dL is considered anegative risk factor for CHD. Triglycerides 149 mg/dL (Normal) Range: 0-149 Cholesterol, Total 175 mg/dL (Normal) Range: 100-199 :14 Glucose (63000) Comments: PATIENT WAS FASTINGPERFORMED BY: RallyPointlin6370 [facility] [id number] Glucose, Serum 85 mg/dL (Normal) Range: 65-99 :14 Lipid Panel (34762) Comments: PATIENT WAS FASTINGPERFORMED BY: RallyPointlin6370 [facility] [id number] Information: [id number] LDL Cholesterol Calc 109 mg/dL (Abnormal) Range: 0-99 LDL/HDL Ratio 3.0 {ratio_units} (Normal) Range: 0.0-3.6 HDL Cholesterol 36 mg/dL (Abnormal) Comments: According to ATP-III Guidelines, HDL-C >59 mg/dL is considered anegative risk factor for CHD. VLDL Cholesterol Lobo 47 mg/dL (Abnormal) Range: 5-40 Triglycerides 234 mg/dL (Abnormal) Range: 0-149 Cholesterol, Total 192 mg/dL (Normal) Range: 100-199 79-Sdj-345620:14 PSA (PROSTATE SPECIFIC Comments: PATIENT WAS FASTINGPERFORMED BY: [employer] [id number] [facility] [id number] ANTIGEN) (V76.44) Prostate Specific Ag, 1.2 ng/mL (Normal) Range: 0.0-4.0 Serum Comments: [place] ECLIA methodology. .According to the [place] [employer], Serum PSA shoulddecrease and remain at undetectable levels after radicalprostatectomy. The AUA defines biochemical recurrence as an initialPSA value 0.2 ng/mL or greater followed by a subsequent confirmatoryPSA value 0.2 ng/mL or greater.Values obtained with d ifferent assay methods or kits cannot be usedinterchangeably. Results cannot be interpreted as absolute evidenceof the presence or absence of malignant disease. Plan of Care Name Dates Details Instructions Annual Medicare Physical WITH abnormal findings (Renamed from Encounter for general adult medical examination with abnormal findings) : fall reduction handout Indication: Annual Medicare Physical WITH abnormal findings (Renamed from Encounter for general adult medical examination with abnormal findings) Annual Medicare Physical WITH abnormal findings (Renamed from Encounter for general adult medical examination with abnormal findings) : elderly packet given Indication: Annual Medicare Physical WITH abnormal findings (Renamed from Encounter for general adult medical examination with abnormal findings) Annual Medicare Physical WITH abnormal findings (Renamed from Encounter for general adult medical examination with abnormal findings) : advance planning information Indication: Annual Medicare Physical WITH abnormal findings (Renamed from Encounter for general adult medical examination with abnormal findings) Annual Medicare Physical WITH abnormal findings (Renamed from Encounter for general adult medical examination with abnormal findings) : *Weight Loss Discussion Indication: Annual Medicare Physical WITH abnormal findings (Renamed from Encounter for general adult medical examination with abnormal findings) Abnormal glucose tolerance test (Renamed from Abnormal glucose tolerance test (GTT)) : Follow up in 6 months Indication: Abnormal glucose tolerance test (Renamed from Abnormal glucose tolerance test (GTT)) Abnormal glucose tolerance test (Renamed from Abnormal glucose tolerance test (GTT)) : Diet, Exercise, and Wt loss Indication: Abnormal glucose tolerance test (Renamed from Abnormal glucose tolerance test (GTT)) Abnormal glucose tolerance test (Renamed from Abnormal glucose tolerance test (GTT)) : *Diabetes Education Indication: Abnormal glucose tolerance test (Renamed from Abnormal glucose tolerance test (GTT)) Hypertriglyceridemia : Reviewed Lab Indication: Hypertriglyceridemia BMI 32.0-32.9,adult : Eprescribed prescriptions (G8553) Indication: BMI 32.0-32.9,adult Hypertriglyceridemia : Reviewed Lab Indication: Hypertriglyceridemia Current smoker : Eprescribed prescriptions (G8553) Indication: Current smoker Hypertriglyceridemia : Cholesterol mgmt Indication: Hypertriglyceridemia Abnormal glucose tolerance test (Renamed from Abnormal glucose tolerance test (GTT)) : Follow up in 6 months Indication: Abnormal glucose tolerance test (Renamed from Abnormal glucose tolerance test (GTT)) Encounter for well adult exam with abnormal findings (Renamed from Encounter for general adult medical examination with abnormal findings) : fall reduction handout Indication: Encounter for well adult exam with abnormal findings (Renamed from Encounter for general adult medical examination with abnormal findings) Encounter for well adult exam with abnormal findings (Renamed from Encounter for general adult medical examination with abnormal findings) : elderly packet given Indication: Encounter for well adult exam with abnormal findings (Renamed from Encounter for general adult medical examination with abnormal findings) Encounter for well adult exam with abnormal findings (Renamed from Encounter for general adult medical examination with abnormal findings) : *Weight Loss Discussion Indication: Encounter for well adult exam with abnormal findings (Renamed from Encounter for general adult medical examination with abnormal findings) Encounter for well adult exam with abnormal findings (Renamed from Encounter for general adult medical examination with abnormal findings) : advance planning information Indication: Encounter for well adult exam with abnormal findings (Renamed from Encounter for general adult medical examination with abnormal findings) Abnormal glucose tolerance test (Renamed from Abnormal glucose tolerance test (GTT)) : Reviewed Lab Indication: Abnormal glucose tolerance test (Renamed from Abnormal glucose tolerance test (GTT)) Abnormal glucose tolerance test (Renamed from Abnormal glucose tolerance test (GTT)) : Follow up in 6 months Indication: Abnormal glucose tolerance test (Renamed from Abnormal glucose tolerance test (GTT)) Hypertriglyceridemia : Diet, Exercise, and Wt loss Indication: Hypertriglyceridemia Abnormal glucose tolerance test (Renamed from Abnormal glucose tolerance test (GTT)) : Diet, Exercise, and Wt loss Indication: Abnormal glucose tolerance test (Renamed from Abnormal glucose tolerance test (GTT)) Abnormal glucose tolerance test (Renamed from Abnormal glucose tolerance test (GTT)) : *Diabetes Education Indication: Abnormal glucose tolerance test (Renamed from Abnormal glucose tolerance test (GTT)) Abnormal glucose tolerance test (Renamed from Abnormal glucose tolerance test (GTT)) : Follow up in 6 months Indication: Abnormal glucose tolerance test (Renamed from Abnormal glucose tolerance test (GTT)) Abnormal glucose tolerance test (Renamed from Abnormal glucose tolerance test (GTT)) : Reviewed Lab Indication: Abnormal glucose tolerance test (Renamed from Abnormal glucose tolerance test (GTT)) Prediabetes : Reviewed Lab Indication: Prediabetes Prediabetes : Follow up in 6 months Indication: Prediabetes Prediabetes : Eprescribed prescriptions (G8553) Indication: Prediabetes Erectile dysfunction : erection medication education Indication: Erectile dysfunction Prediabetes : Follow up in 3 months Indication: Prediabetes Need for prophylactic vaccination and inoculation against influenza : Flu (Influenza) *: flu shot Indication: Need for prophylactic vaccination and inoculation against influenza Planned Observations PSA (PROSTATE SPECIFIC ANTIGEN) (V76.44)Indication: Encounter for screening for malignant neoplasm of prostate (Renamed from Screening for prostate cancer) On: 35-Yjw-973203:42 Request LIPOPROTEIN, BLD, BY NMR ([id number])Indication: Hypertriglyceridemia On: 82-Zpr-287183:41 Request TSH ([id number])Indication: Abnormal glucose tolerance test (Renamed from Abnormal glucose tolerance test (GTT)) On: 42-Crs-596859:12 Request TSH ([id number])Indication: Abnormal glucose tolerance test (Renamed from Abnormal glucose tolerance test (GTT)) On: :36 Request URINALYSIS, W/ MICRO ([id number])Indication: Abnormal glucose tolerance test (Renamed from Abnormal glucose tolerance test (GTT)) On: :36 Request MICROALBUMIN: CREATININE RATIO (91234) AND (31658)Indication: Abnormal glucose tolerance test (Renamed from Abnormal glucose tolerance test (GTT)) On: :36 Request METABOLIC PANEL, COMPREHENSIVE (10555)Indication: Abnormal glucose tolerance test (Renamed from Abnormal glucose tolerance test (GTT)) On: :36 Request LIPID PANEL (64941)Indication: Abnormal glucose tolerance test (Renamed from Abnormal glucose tolerance test (GTT)) On: :36 Request CBC W/AUTO DIFF WBC ([id number])Indication: Abnormal glucose tolerance test (Renamed from Abnormal glucose tolerance test (GTT)) On: :36 Request Lipid Panel ([id number])Indication: Hyperglyceridemia On: 4-Kqy-294193:28 Request Planned Encounters Medical; 6 Month FU - On: 08-Nov-2018 13:00 [facility] Little Faulkner DO, DO, Kathleen Planned Procedures [id number] BEHAVIORAL COUNSELING On: 05-May-2018 Intent FOR OBESITY, 15 MINUTES (G0447)By: Little Faulkner DO, DO, Kathleen Flu Vaccine (Quadrivalent) 34699Uo: On: 05-May-2018 Intent Little Faulkner DO, DO, Comments: Lot #[id number]/30/2019Site-L dltd, IMDose prefilled syringegiven by: ROSE SAUNDERS reviewed and ABN signed Little [id number] BEHAVIORAL COUNSELING On: 27-Apr-2017 Intent FOR OBESITY, 15 MINUTES (G0447)By: Little Faulkner DO Lucie Little Flu Vaccine (Quadrivalent) 03681Fw: On: 27-Apr-2017 Intent Little Faulkner DO, DO, Comments: lot: [id number]: 12/28/17ite/route: L billy, IMamt: 0.5mlVIS and ABN signed when applicableChelsjenni [facility] Little EEG ([id number])By: Little Faulkner DO On: 23-Oct-2016 Intent Lucie HUTTON Little Flu Vaccine (Quadrivalent) 46841Xm: On: 07-May-2016 Intent Little Faulkner DO, DO, Comments: Lot:[id number]:01/09/17Dose:0.5mLRoute:IMSite:L DltdGiven By:LUCY signed Little Flu Vaccine (Quadrivalent) 63433Kb: On: 02-May-2015 Intent Naz Garrido MD ADMINISTRATION OF INFLUENZA VIRUS On: 04-May-2014 Intent VACCINE (G0008)By: Naz Garrido MD FLU VAC, SPLIT, >3 YEARS, INTRAMUSC On: 04-May-2014 Intent ([id number])By: Naz Garrido MD Eprescribed prescriptions (G8553)By: On: 26-Apr-2013 Intent Long PROVIDER ENGAGEMENT EXECUTIVEPetern L Eprescribed prescriptions (G8553)By: On: 26-Oct-2012 Intent Long PROVIDER ENGAGEMENT EXECUTIVE, Halie L FLU VAC, SPLIT, >3 YEARS, INTRAMUSC On: 20-Apr-2012 Intent ([id number])By: Peter El LPNn L Comments: Lot #[id number]-L dltd, IMDose prefilled syringegiven by ROSE Hernandez signed IMMUNIZ ADMNIN, 1 VAC, SNGL/COMBO On: 20-Apr-2012 Intent ([id number])By: Peter El LPNn L TDAP VACCINE >7 IM ([id number])By: On: 3-May-2011 Intent Naz Garrido MD Instructions Name Dates Details Abnormal glucose tolerance test (Renamed from Abnormal glucose tolerance test (GTT)) : obesity counseling Indication: Abnormal glucose tolerance test (Renamed from Abnormal glucose tolerance test (GTT)) BMI 32.0-32.9,adult : How to access health information online Indication: BMI 32.0-32.9,adult BMI 32.0-32.9,adult : How to access health information online - Detail Indication: BMI 32.0-32.9,adult BMI 32.0-32.9,adult : Patient Instructions Indication: BMI 32.0-32.9,adult Current smoker : How to access health information online Indication: Current smoker Current smoker : How to access health information online - Detail Indication: Current smoker Current smoker : Patient Instructions Indication: Current smoker Abnormal glucose tolerance test (Renamed from Abnormal glucose tolerance test (GTT)) : How to access health information online Indication: Abnormal glucose tolerance test (Renamed from Abnormal glucose tolerance test (GTT)) Abnormal glucose tolerance test (Renamed from Abnormal glucose tolerance test (GTT)) : How to access health information online - Detail Indication: Abnormal glucose tolerance test (Renamed from Abnormal glucose tolerance test (GTT)) Abnormal glucose tolerance test (Renamed from Abnormal glucose tolerance test (GTT)) : Patient Instructions Indication: Abnormal glucose tolerance test (Renamed from Abnormal glucose tolerance test (GTT)) Abnormal glucose tolerance test (Renamed from Abnormal glucose tolerance test (GTT)) : obesity counseling Indication: Abnormal glucose tolerance test (Renamed from Abnormal glucose tolerance test (GTT)) Current smoker : How to access health information online Indication: Current smoker Current smoker : How to access health information online - Detail Indication: Current smoker Current smoker : Patient Instructions Indication: Current smoker Abnormal glucose tolerance test (Renamed from Abnormal glucose tolerance test (GTT)) : How to access health information online Indication: Abnormal glucose tolerance test (Renamed from Abnormal glucose tolerance test (GTT)) Abnormal glucose tolerance test (Renamed from Abnormal glucose tolerance test (GTT)) : How to access health information online - Detail Indication: Abnormal glucose tolerance test (Renamed from Abnormal glucose tolerance test (GTT)) Abnormal glucose tolerance test (Renamed from Abnormal glucose tolerance test (GTT)) : Patient Instructions Indication: Abnormal glucose tolerance test (Renamed from Abnormal glucose tolerance test (GTT)) Prediabetes : How to access health information online Indication: Prediabetes Prediabetes : How to access health information online - Detail Indication: Prediabetes Prediabetes : Patient Instructions Indication: Prediabetes Prediabetes : How to access health information online Indication: Prediabetes Prediabetes : How to access health information online - Detail Indication: Prediabetes Prediabetes : Patient Instructions Indication: Prediabetes Prediabetes : How to access health information online Indication: Prediabetes Prediabetes : How to access health information online - Detail Indication: Prediabetes Prediabetes : Patient Instructions Indication: Prediabetes Obesity, unspecified : Patient Instructions Indication: Obesity, unspecified Prediabetes : Patient Instructions Indication: Prediabetes Prediabetes : Patient Instructions Indication: Prediabetes Hyperglyceridemia : Patient Instructions Indication: Hyperglyceridemia Obesity, unspecified : Patient Instructions Indication: Obesity, unspecified Encounters Office Visit On: 05-May-2018 13:06 Encounter Reason: Follow up for chronic medical issues - The patient feels well with minor complaints. Patient has been compliant with instructions. Current medication use: no side effects. Patient sleeps 7 hours per nig End: 05-May-2018 14:17 ht. Impact of disease: no overall impact. Nutrition: balanced diet. The medical issues the patient is following up for include high cholesterol., [ADDITIONAL REASON] Annual Medicare Exam - The patient had reviewed and updated the family history, medication/s and past medical history. Yes the patient did have () a mini mental status exam done today. The patient would like education and information on weight loss. The activities of daily diego ing the patient needs help with are none. The patient has driven in past 6 months and fallen in the past 6 months (standing up too fast), but the patient has not had fecal incontinence, had urinary inco ntinence, missed or ran out of medications to soon, gotten lost, has a medalert necklace or bracelet, put area rugs through house or put handrails in bathroom. The patient has completed the following pr eventative measures: colonoscopy (never had one). 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 Encounter Diagnosis: BMI 32.0-32.9,adult, Smoker, Abnormal glucose tolerance test (Renamed from Abnormal glucose tolerance test (GTT)), Need for prophylactic vaccination and inoculation against influenza (Renamed from Need for immunization against influenza), Nutritional counseling, Hypertriglyceridemia, Low HDL (under 40), Muscle strain, Annual Medicare Physical WITH abnormal findings (Renamed from Encounter for general adult medical examination with abnormal findings), Colon cancer screening (Renamed from Encounter for screening for malignant neoplasm of colon), Encounter for screening for malignant neoplasm of prostate (Renamed from Screening for prostate cancer), History of traumatic head injury [facility] Office Visit On: 09-Nov-2017 14:13 Encounter Reason: Follow up tests - Date: (10/30/17 labs).Encounter Diagnosis: BMI 33.0-33.9,adult, Current smoker, Hypertriglyceridemia, Nutritional counseling End: 09-Nov-2017 15:26 [facility] Office Visit On: 30-Oct-2017 13:59 Encounter Reason: Follow up for chronic medical issues - The patient feels well with minor complaints, has good energy level and is sleeping well. Patient has been compliant with instructions. Current medication use: no End: 30-Oct-2017 14:16 side effects and compliant with dosing regimen. Patient sleeps 7 hours per night. Nutrition: balanced diet and no supplemental vitamins & iron. The medical issues the patient is following up for inc lude All identified problems below, blood sugar issues, high blood pressure and high cholesterol.Encounter Diagnosis: Abnormal glucose tolerance test (Renamed from Abnormal glucose tolerance test (GTT)), Body mass index 31.0-31.9, adult, Nutritional counseling, Hypertriglyceridemia, Alcohol drinker, History of traumatic head injury [facility] Office Visit On: 27-Apr-2017 13:09 Encounter Reason: Follow up tests - Date: (04/20/17)., [ADDITIONAL REASON] Follow up for chronic medical issues - The patient feels well with minor complai End: 27-Apr-2017 17:21 nts, has good energy level and is sleeping well. Patient has been compliant with instructions. Current medication use: no side effects and compliant with dosing regimen. Patient sleeps 6 hours per night . Nutrition: balanced diet and no supplemental vitamins & iron. The medical issues the patient is following up for include All identified problems below. , [ADDITIONAL REASON] Annual Medicare Exam - The patient had reviewed and updated the family history, medication/s, past medical history and social history. Yes the patient did have ( Alert) a mini mental status exam done today. The activities of daily living the patient needs help with are none. The patient has driven in past 6 months and put area rugs through house, but the patient has not had f ecal incontinence, had urinary incontinence, missed or ran out of medications to soon, fallen in the past 6 months, gotten lost, has a medalert necklace or bracelet or put handrails in bathroom. The pat ient does have durable power of gasoline power shovel operator and living will. The patient has noticed nothing from the geriatic depression scale. Other providers contributing to the patient's care are other: (N/A). Encounter Diagnosis: BMI 33.0-33.9,adult, Current smoker, Abnormal glucose tolerance test (Renamed from Abnormal glucose tolerance test (GTT)), Hypertriglyceridemia, Nutritional counseling, Alcohol drinker, Macrocytosis, Need for prophylactic vaccination and inoculation against influenza (Renamed from Need for immunization against influenza), Encounter for well adult exam with abnormal findings (Renamed from Encounter for general adult medica l examination with abnormal findings), Encounter for screening for malignant neoplasm of prostate (Renamed from Screening for prostate cancer) [facility] Office Visit On: 23-Oct-2016 13:08 Encounter Reason: Follow up for chronic medical issues - The patient feels well with minor complaints, has good energy level and is sleeping well. Patient has been compliant with instructions. Current medication use: no End: 23-Oct-2016 13:41 side effects and compliant with dosing regimen. Patient sleeps 7 hours per night. Nutrition: balanced diet and no supplemental vitamins & iron. The medical issues the patient is following up for inc lude All identified problems below and blood sugar issues., [ADDITIONAL REASON] Follow up tests - Date: (10/13/16 labs). Encounter Diagnosis: BMI 33.0- 33.9,adult, Current smoker, History of traumatic head injury, Abnormal glucose tolerance test (Renamed from Abnormal glucose tolerance test (GTT)), Syncope and collapse, Cannabis intoxication, with unspecified complication, Alcohol drinker [facility] Office Visit On: 07-May-2016 13:00 Encounter Reason: Follow up tests - Date: (04/29/16 labs)., [ADDITIONAL REASON] Follow up for chronic medical issues - The patient feels well with no complaints End: 08-May-2016 7:35 , has good energy level and is sleeping well. Patient has been compliant with instructions. Current medication use: no side effects and compliant with dosing regimen. Patient sleeps 7 hours per night. N utrition: balanced diet and no supplemental vitamins & iron. The medical issues the patient is following up for include All identified problems below, blood sugar issues and high blood pressure. Encounter Diagnosis: Prediabetes, History of traumatic head injury, Current smoker, Body mass index 31.0-31.9, adult, Erectile dysfunction, Need for prophylactic vaccination and inoculation against influenza (Renamed from Need for immunization against influenza), Hyperglyceridemia, Low HDL (under 40), Encounter for screening for malignant neoplasm of prostate (Renamed from Screening for prostate cancer) [facility] Phone Encounter On: 29-Apr-2016 11:11 Encounter Diagnosis: Prediabetes End: 29-Apr-2016 11:15 [facility] Office Visit On: 06-Nov-2015 12:53 Encounter Reason: Follow up for chronic medical issues - The patient feels well with minor complaints, has good energy level and is sleeping well. Patient has been compliant with instructions. Current medication use: no End: 06-Nov-2015 13:25 side effects. Patient sleeps 7 hours per night. Impact of disease: emotional impact- mild. Nutrition: balanced diet and supplemental vitamins. The medical issues the patient is following up for include b lood sugar issues, high cholesterol and other (ED, overweight, tobacco use, hx. traumatic brain injury ).Encounter Diagnosis: Prediabetes, Current smoker, History of traumatic head injury, Obesity, unspecified, Recurrent ventral hernia, Erectile dysfunction, Hyperglyceridemia [facility] Office Visit On: 02-May-2015 13:02 Encounter Reason: Follow up tests - Date: (04/16/15 blood work)., [ADDITIONAL REASON] Follow up for chronic medical issues - The patient feels well with no complaints End: 02-May-2015 13:20 , has decreased energy level and is sleeping well. Patient has been compliant with instructions. Current medication use: no side effects and compliant with dosing regimen. Patient sleeps 8 hours per nig ht. Impact of disease: emotional impact-mild. Nutrition: balanced diet and supplemental vitamins. The medical issues the patient is following up for include cardiac issues and other (obesity, erectile dysfunction, PSA elevation ). Encounter Diagnosis: Hypertriglycerides (272.1), PSA elevation (790.93), History of traumatic head injury, Recurrent ventral hernia, Obesity, unspecified, Pre- diabetes (790.29), ERECTILE DYSFUNCTION (607.84), Encounter for routine history and physical exam for male, Encounter for screening for malignant neoplasm of prostate (Renamed from Screening for prostate cancer), Need for prophylactic vaccination and inoculation against influenza [facility] Office Visit On: 31-Oct-2014 13:51 Encounter Reason: Follow up for chronic medical issues - The patient feels well with no complaints, has good energy level and is sleeping well. Patient has been compliant with instructions. Current medication use: no bruna End: 31-Oct-2014 14:33 e effects and compliant with dosing regimen. Patient sleeps 7 hours per night. Impact of disease: emotional impact-mild. Nutrition: balanced diet and supplemental vitamins. The medical issues the xavi elizalde is following up for include cardiac issues and other (obesity, erectile dysfunction, PSA elevation ).Encounter Diagnosis: Limitation due to disability (799.89), PSA elevation (790.93), Pre-diabetes (790.29), Hypertriglycerides (272.1), Recurrent ventral hernia, Obesity,unspecified (278.00), ERECTILE DYSFUNCTION (607.84), Well Male Exam (V70.0) [facility] Office Visit On: 04-May-2014 12:42 Encounter Reason: Follow up for chronic medical issues - The patient feels well with no complaints, has good energy level and is sleeping well. Patient has been compliant with instructions. Current medication use: no bruna End: 04-May-2014 13:17 e effects and compliant with dosing regimen. Patient sleeps 7 hours per night. Impact of disease: emotional impact-mild. Nutrition: balanced diet and supplemental vitamins. The medical issues the xavi elizalde is following up for include cardiac issues and other (obesity, erectile dysfunction, PSA elevation ).Encounter Diagnosis: Pre-diabetes (790.29), PSA elevation (790.93), Limitation due to disability (799.89), Hypertriglycerides (272.1), Obesity,unspecified (278.00), ERECTILE DYSFUNCTION (607.84), Recurrent ventral hernia, Well Male Exam (V70.0), Need for prophylactic vaccination and inoculation against influenza (V04.81) [facility] Office Visit On: 27-Oct-2013 10:29 Encounter Reason: Follow up, Diagnostic Procedure Results - Diagnostic tests include other (labs ). Date: (10-17-13). Follow up visit with no current symptoms.Encounter Diagnosis: Pre-diabetes (790.29), PSA elevation (790.93), End: 27-Oct-2013 11:32 Limitation due to disability (799.89), Hypertriglycerides (272.1), ERECTILE DYSFUNCTION (607.84), Obesity,unspecified (278.00) [facility] Office Visit On: 26-Apr-2013 13:46 Encounter Reason: Follow up tests - Date: ()., [ADDITIONAL REASON] Follow up for chronic medical issues - The patient feels well with no complaints End: 26-Apr-2013 14:17 , has good energy level and is sleeping well. Patient has been compliant with instructions. Patient sleeps 7 hours per night. Impact of disease: emotional impact-mild. Nutrition: balanced diet and no nova pplemental vitamins & iron. The medical issues the patient is following up for include high cholesterol and other (obesity). Encounter Diagnosis: Pre-diabetes (790.29), Hypertriglycerides (272.1), Obesity,unspecified (278.00), Limitation due to disability (799.89), PSA elevation (790.93), Well Male Exam (V70.0), ERECTILE DYSFUNCTION (607.84) [facility] Office Visit On: 26-Oct-2012 12:35 Encounter Reason: Follow up for chronic medical issues - The patient feels well with no complaints, has good energy level and is sleeping well. Patient has been compliant with instructions. Patient sleeps 7 hours per nig End: 26-Oct-2012 13:23 ht. Impact of disease: emotional impact-mild. Nutrition: balanced diet and no supplemental vitamins & iron. The medical issues the patient is following up for include high cholesterol and other (obesity).Encounter Diagnosis: Pre-diabetes (790.29) , Limitation due to disability (799.89), Skin Tag, Irritated (701.9), Hypertriglycerides (272.1), Obese abdomen (278.1), Obesity,unspecified (278.00), Well Male Exam (V70.0) [facility] Office Visit On: 01-Jun-2012 13:19 Encounter Reason: Weight Gain - Symptoms include weight gain, while symptoms do not include constipation, polyuria, polydipsia, leg edema or facial swelling. Onset was sudden year(s) ago. Onset followed traumatic injury. End: 01-Jun-2012 14:22 Patient describes the symptoms as worsening. Symptoms are exacerbated by inactivity. Associated symptoms do not include myalgias, hoarseness, tremor, paresthesias or depression.Encounter Diagnosis: Obese abdomen (278.1), Hypertriglycerides (272.1), Pre-diabetes (790.29) [facility] Office Visit On: 20-Apr-2012 13:46 Encounter Reason: Follow up for chronic medical issues - The patient feels well with no complaints, has good energy level and is sleeping well. Patient has been compliant with instructions. Patient sleeps 7 hours per nig End: 20-Apr-2012 14:31 ht. Impact of disease: emotional impact-mild. Nutrition: balanced diet and no supplemental vitamins & iron. The medical issues the patient is following up for include high cholesterol and other (obesity).Encounter Diagnosis: Need for prophylactic vaccination and inoculation against influenza (V04.81), Obesity,unspecified (278.00), Hypertriglycerides (272.1) [facility] Office Visit On: 16-Dec-2011 14:26 Encounter Reason: Follow up for chronic medical issues - The patient feels well with no complaints, has good energy level and is sleeping well. Patient has been compliant with instructions. Patient sleeps 7 hours per nig End: 16-Dec-2011 15:32 ht. Impact of disease: emotional impact-mild. Nutrition: balanced diet and no supplemental vitamins & iron. The medical issues the patient is following up for include high cholesterol and other (obesity)., [ADDITIONAL REASON] Follow up tests - Diagnostic tests include other (tests). Date: (11/24/11). Encounter Diagnosis: Hypertriglycerides (272.1), Obesity,unspecified (278.00), Well Male Exam (V70.0), Skin Tag, Irritated (701.9) [facility] Office Visit On: 26-May-2011 13:32 Encounter Reason: Follow up tests - Diagnostic tests include other (labs ). Date: (05-16-11). Follow up visit with no current symptoms.Encounter Diagnosis: Obesity,unspecified (278.00), Hypertriglycerides (272.1), Well Male Exam (V70.0) End: 26-May-2011 13:54 [facility] Phone Encounter On: 02-May-2011 15:36 Encounter Diagnosis: Obesity,unspecified (278.00) End: 02-May-2011 15:37 [facility] Office Visit On: 12-Nov-2010 13:04 Encounter Reason: Physical male exam - Last seen more than 1 year ago. General health: feels well with no complaints, has good energy level and is sleeping well. The patient's appetite is normal. Nutrition: eating a vari End: 12-Nov-2010 13:49 ety of foods. Exercises 0 days per week. Sleeps on average 7 hours per night. Normal bowel and bladder habits. Safety measures include appropriate use of safety belts and home smoke detectors. There are no current emotional problems. The patient's libido is normal.Encounter Diagnosis: Well Male Exam (V70.0), Obesity,unspecified (278.00) [facility] Payers MedicareMonte Dawson; a guarantor
== END 2018-06-23 11:30 | disposition home or self-care (01) ==
LOC: EN 08:37 → AC 08:45
PROVIDERS: Family Provider Internal Medicine; PCP Internal Medicine; Referring Provider Surgery; Visit Provider Surgery
PROC: 0DJD8ZZ Inspection of Lower Intestinal Tract, Via Natural or Artificial Opening Endoscopic (ICD-10-PCS; CPT 45378; principal; 2018-06-23 09:40)
DX: Z12.11 Encounter for screening for malignant neoplasm of colon (principal); D12.3 Benign neoplasm of transverse colon; K62.1 Rectal polyp; D12.4 Benign neoplasm of descending colon; F17.200 Nicotine dependence, unspecified, uncomplicated
CPT/HCPCS: 45380; 88305; J7120

== ENCOUNTER → 2018-07-02 07:48 | Outpatient (CLI) | payer MEDICARE, SELFPAY ==
[2018-06-23 09:01] VITALS: BMI 32.1
--- NOTE | 2018-07-02 08:00 | RAD_ITS ---
STUDY: BARIUM ENEMA. REASON FOR EXAM: Male, 48 years old. Incomplete colonoscopy. Colon cancer screening. FLUOROSCOPY TIME (if supplied): (1:25) minutes/seconds. 9 images were obtained. TECHNIQUE: A athletic scout film was obtained. Following this, barium was introduced retrograde into the rectum. Entire colon was opacified. COMPARISON: None. FINDINGS: Surgical clips are seen in the right upper quadrant most likely secondary to prior cholecystectomy. There is evidence of a filter within the inferior vena cava. Contrast was introduced retrograde through the rectum. The entire colon was opacified. There is no evidence of antegrade or retrograde obstruction to the flow of contrast. No mass lesion is seen. RAD/Barium Enema No Air Cont IMPRESSION: Unremarkable barium enema. Electronically Signed: Aguila Kingsley MD at 13:09 EST Tel [phone], Service support ,
== END ==
PROVIDERS: Family Provider Internal Medicine; PCP Internal Medicine; Referring Provider Surgery; Visit Provider Surgery
DX: Z12.11 Encounter for screening for malignant neoplasm of colon (principal)
CPT/HCPCS: 74270

== ENCOUNTER → 2019-09-17 | Outpatient (CLI) | payer MEDICARE, SELFPAY ==
[2018-06-23 09:01] VITALS: BMI 32.1
--- NOTE | 2019-09-17 10:52 | US_ITS ---
STUDY: ABDOMINAL ULTRASOUND -LIMITED 4 QUADRANT REASON FOR VISIT: Male, 49 years old ASCITES SURVEY TECHNIQUE: Ultrasound evaluation of the 4 quadrants was performed with real-time and static morales-scale imaging. TECHNICAL QUALITY: Adequate. COMPARISON: None. FINDINGS: Ascites: There is no free fluid seen. US/Abdomen Limited IMPRESSION: No ascites seen. Electronically Signed: Chriss Olivarez MD at 15:54 EST , Service support ,
== END | disposition home or self-care (01) ==
LOC: US 10:47
PROVIDERS: PCP Internal Medicine; Referring Provider Internal Medicine; Visit Provider Internal Medicine
DX: R18.8 Other ascites (principal)
CPT/HCPCS: 76705

== ENCOUNTER → 2023-04-27 | Outpatient (CLI) | payer MEDICARE, SELFPAY ==
[2023-04-27 12:40] LABS: PSA,Total - Annual Screen 1.66 ng/mL (0.00-4.00)
== END | disposition home or self-care (01) ==
LOC: MTLAB 10:28
PROVIDERS: PCP Internal Medicine; Referring Provider Internal Medicine; Visit Provider Internal Medicine
DX: Z12.5 Encounter for screening for malignant neoplasm of prostate (principal)
CPT/HCPCS: 36415; 84153; G0103

== ENCOUNTER → 2023-09-18 | Outpatient (CLI) | payer MEDICARE, SELFPAY ==
--- NOTE | 2023-09-18 16:34 | CT_ITS ---
STUDY: LOW DOSE CT LUNG CANCER SCREENING REASON FOR EXAM: Male, 53 years old. SCREENING RADIATION DOSAGE (If Supplied By Facility): CTDIvol = ( 4.02 ) mGy, DLP = ( 134.91 ) mGycm TECHNIQUE: No contrast was administered. Low dose technique was utilized (average mAS-38 and kVp 120). 1.25 mm axial source images with a slice interval of 1.25-mm were reconstructed in lung windows. 2.5 mm axial source images with a slice interval of 2.5-mm were reconstructed in lung windows. 5.0 mm axial source images with a slice interval of 5.0-mm were reconstructed in soft tissue windows. COMPARISON: None. Emphysema: Mild emphysema. 4 mm ill-defined noncalcified nodule in the periphery of the right upper lobe lungs on image 76 and follow-up CT is recommended in 12 months document stability. 4 mm ill-defined noncalcified nodule in the left upper lobe on image 50 and follow-up CT is recommended in 12 months document stability. Another 4 mm ill-defined noncalcified nodule in the left upper lobe on image 65 and follow-up CT is recommended in 12 months. Linear scar in the anterior left lower lobe. Endobronchial lesion: None Aorta: No aortic aneurysm. CORONARY ARTERIES: Coronary artery calcification is not seen. Heart: No cardiomegaly. Pulmonary artery: Normal Mediastinal nodes: Normal Other chest and abdominal findings: Mild levoscoliosis of the upper thoracic spine. CT/Low Dose CT Lung Screening IMPRESSION: Lung-RADS category 2 - Continue annual screening with LDCT in 12 months. IMPORTANT NOTES FOR USE: ACR Lung-RADS Version 1.1 Assessment Categories Release Date: 2018 Category: Coded 0-4 bases on nodule(s) with highest degree of suspicion. Negative screen is defined as categories 1 and 2; a positive screen is defined as categories 3 and 4. Category 3 and 4A nodules that are unchanged on interval CT should be coded as category 2, and individuals returned to screening in 12 months. Category 4X: Category 3 or 4 nodules with additional imaging findings that increase the suspicion of lung cancer, such as spiculation, GGN that doubles in size in 1 year, enlarged lymph notes, etc. Category Modifiers: S (significant finding unrelated to lung cancer) Electronically Signed: Filiberto Mendes MD at 18:49 EST ,
== END | disposition home or self-care (01) ==
PROVIDERS: PCP Internal Medicine; Referring Provider Internal Medicine; Visit Provider Internal Medicine
DX: Z12.2 Encounter for screening for malignant neoplasm of respiratory organs (principal); J43.9 Emphysema, unspecified; F17.210 Nicotine dependence, cigarettes, uncomplicated
CPT/HCPCS: 71271

== ENCOUNTER → 2024-10-19 | Outpatient (CLI) | payer MEDICARE, SELFPAY ==
--- NOTE | 2024-10-19 14:07 | CT_ITS ---
PROCEDURE: LOW DOSE CT LUNG SCREENING 10/19/2024 REASON FOR EXAM: LDCT FOR LUNG CA SCREEN (MEDICARE) (34138) TECHNIQUE: Low Dose CT Lung screening without contrast. Coronal and Sagittal reformats were generated. One or more dose reduction techniques were used (e.g., Automated exposure control, adjustment of the mA and/or kV according to patient size, use of iterative reconstruction technique). REFERENCE LINK: [employer] Lung-RADS RADIATION DOSE SUMMARY: CTDlvol: 3.18 mGy DLP: 108.81 mGycm COMPARISON: None. FINDINGS: Note that evaluation of the vasculature, kenn, and soft tissues is limited in the absence of IV contrast. Heart/pericardium:Unremarkable. Trace barely perceptible coronary atherosclerosis. Aorta: Unremarkable. Pulmonary arteries: Unremarkable. Lymph nodes: Unremarkable. Lungs/pleura: Minimal atelectasis/scarring. Few punctate pleural/subpleural calcifications along the anterolateral LEFT upper lobe, possible sequela of chronic granulomatous disease or perhaps early/minimal manifestations of previous asbestos exposure. 2 mm lingular micronodule which is not clearly calcified (series 2, image 158). Few punctate calcified granulomas present elsewhere. Airways: Unremarkable. Chest wall: Unremarkable. Upper abdomen: Suboptimally evaluated. Large partially imaged midline ventral hernia containing a portion of the stomach, tiny portion of the LEFT hepatic lobe, a portion of the colon, and very likely also small-bowel. Musculoskeletal: Old RIGHT rib fractures. Trace cervicothoracic scoliosis. CT/Low Dose CT Lung Screening IMPRESSION: 1. Lung-RADS category: 2 (benign appearance or behavior, <1% chance of malignan cy); continue annual screening with LDCT. 2. Other clinically significant or potentially significant non-lung cancer find ings: None. 3. Additional description as above. Recommendations per [employer]. Lung CT Screening Reporting and Data System (Lung-RADS) v. 2022 Reading Location: [id number]
== END | disposition home or self-care (01) ==
PROVIDERS: PCP Internal Medicine; Referring Provider Internal Medicine; Visit Provider Internal Medicine
DX: F17.210 Nicotine dependence, cigarettes, uncomplicated (principal)
CPT/HCPCS: 71271

== ENCOUNTER → 2025-05-09 | Outpatient (CLI) | payer MEDICARE, SELFPAY ==
[2025-05-12 05:07] LABS: PSA, Total 1.6 ng/mL (0.0-4.0)
== END | disposition home or self-care (01) ==
LOC: MTLAB 11:22
PROVIDERS: PCP Internal Medicine; Referring Provider Internal Medicine; Visit Provider Internal Medicine
DX: Z12.5 Encounter for screening for malignant neoplasm of prostate (principal)
CPT/HCPCS: 36415; 84153